=== PATIENT | male | born 1975 | race Caucasian/White ===

== ENCOUNTER 2017-08-20 10:01 | Inpatient (IN) | payer OTHER ==
[~2017-08-20] VITALS: Ht 185.4 cm; Wt 154.7 kg
[2017-08-20 10:05] VITALS: BP 128/71
[2017-08-20] MEDS ORDERED: PRINIVIL20 MG PO (10:08)
[2017-08-20] MEDS ORDERED: ZYRTEC10 M5 PO (10:09)
[2017-08-20 10:28] LABS: ABSOLUTE EOSINOPHILS 0.2 thou/uL (0.0-0.7); ABSOLUTE LYMPHOCYTES 1.3 thou/uL (0.8-5.3); ABSOLUTE MONOCYTES 0.7 thou/uL (0.0-1.2); ABSOLUTE NEUTROPHILS 3.4 thou/uL (1.6-8.1); BASOPHILS 0.8 %; EOSINOPHILS 2.7 %; HEMATOCRIT 38.1 % (42.0-52.0); HEMOGLOBIN 12.9 gm/dL (14.0-18.0); LYMPHOCYTES 23.1 %; MCH 31.1 pg (26.0-34.0); MCHC 33.8 g/dL (28.0-37.0); MCV 92.2 fL (80.0-100.0); MONOCYTES 11.9 %; MPV 8.8 fl. (7.2-11.1); NUCLEATED RBCS 0 /100WBC; PLATELET COUNT* 171 thou/uL (150-400); POLYS 61.5 %; RBC 4.14 mil/uL (4.50-6.00); RDW-CV 13.3 % (10.5-14.5); WBC 5.6 thou/uL (4.0-11.0)
[2017-08-20 10:29] LABS: URINE BILIRUBIN NEGATIVE (Negative); URINE BLOOD 3+ (Negative); URINE CLARITY CLEAR; URINE COLOR YELLOW; URINE GLUCOSE-RANDOM NEGATIVE (Negative); URINE KETONES NEGATIVE (Negative); URINE LEUKOCYTES-REFLEX NEGATIVE (Negative); URINE NITRITE-REFLEX NEGATIVE (Negative); URINE PROTEIN 2+ (Negative); URINE SPECIFIC GRAVITY >= 1.030 (1.005-1.030); URINE UROBILINOGEN 0.2 E.U./dl (0.2-1.0)
[2017-08-20 10:39] LABS: SQUAMOUS NONE SEEN /LPF (0-3)
[2017-08-20 10:40] LABS: COARSE GRANULAR CASTS 0-3 Few /LPF (None Seen); FINE GRANULAR CASTS 4-10 Moderate /LPF (None Seen); HYALINE CASTS 4-10 Moderate /LPF (None Seen); MUCUS 0-3 Light strn/LPF (None Seen); URINE WBC-REFLEX 0-5 Rare /HPF (0-5)
[2017-08-20 10:40] LABS: APTT 27.3 Seconds (25.0-31.3); INR 1.2; PROTIME 11.8 Seconds (9.20-11.50)
[2017-08-20 10:41] LABS: AMORPHOUS URATES Few /LPF (None Seen)
[2017-08-20 10:43] LABS: ANION GAP 10 mmol/L (7-16); BUN 22 mg/dL (7-18); CALCIUM 8.2 mg/dL (8.5-10.1); CHLORIDE 104 mmol/L (98-107); CO2 25 mmol/L (21-32); CREATININE 2.1 mg/dL (0.6-1.3); GLUCOSE 127 mg/dL (70-99); POTASSIUM 4.1 mmol/L (3.5-5.1); SODIUM 139 mmol/L (136-145)
[2017-08-20 10:45] LABS: AMP/METHAMP Negative (Negative); BARBITURATES Negative (Negative); BENZODIAZEPINES Negative (Negative); COCAINE Negative (Negative); METHADONE Negative (Negative); OPIATES Negative (Negative); PCP Negative (Negative); THC Negative (Negative)
[2017-08-20 10:48] LABS: ALBUMIN 3.3 g/dL (3.4-5.0); ALKALINE PHOSPHATASE 79 U/L (46-116); MAGNESIUM 1.9 mg/dL (1.8-2.4); SGOT 23 U/L (15-37); SGPT 23 U/L (30-65); TOTAL BILIRUBIN 0.3 mg/dL (<0.1-1.0); TOTAL PROTEIN 7.2 g/dL (6.4-8.2); TROPONIN-I LEVEL <0.06 ng/mL (<0.06)
[2017-08-20 15:10] VITALS: BP 116/74
[2017-08-20 15:56] VITALS: BP 125/73
--- NOTE | 2017-08-20 16:33 | EKG ---
[place] [address] ELECTROCARDIOGRAM REPORT Name: RENEA ZALDIVAR Room: [address] ADM IN [facility]#: [id number] Admission: 08/20/17 Attend Phys: Dee Saucedo Discharge: Date of : 77 Report #: [id number] THIS REPORT FOR: //name// [facility] ED Test Date: 2017-08-20 Test Time: 10:04:45 Pat Name: RENEA GRIFFITHCE Department: Room: [facility] Gender: M Rn Paralegal: MS : 1975 Requested By: Hilary Soto Order Number: [id number] MD: Uriel Shi Measurements Intervals Dime Box Rate: 73 P: 21 DE: 152 QRS: 24 QRSD: 110 T: 28 QT: 364 QTc: 401 Interpretive Statements Sinus rhythm No previous ECG available for comparison Electronically Signed On 08-20-2017 16:33:30 MAIL SORTER by Uriel Shi [email or web address] <ELECTRONICALLY SIGNED> By: Uriel Shi MD, [facility] 08/20/17 1633 1004 Uriel Shi MD, [facility] /EPI
[2017-08-20 18:20] LABS: INFLUENZA A ANTIGEN None Detected (None Detect)
[2017-08-20 20:15] VITALS: BP 128/53
[2017-08-21] VITALS (8 sets, daily range): BP systolic 127–144; BP diastolic 59–92
--- NOTE | 2017-08-21 16:59 | 2DMMODE ---
[place] [address] 2 D/M-MODE ECHOCARDIOGRAM Name: RENEA ZALDIVAR Room: [address] IN [facility]#: [id number] Admission: 08/20/17 Attend Phys: [place] Amaro Discharge: Date of : 77 Date of Service: 08/21/17 1658 Report #: [id number] THIS REPORT FOR: //name// APPROVED REPORT Study performed: 08/21/2017 10:03:55 EXAM: Comprehensive 2D, Doppler, and color-flow Echocardiogram Patient Location: In-Patient Room #: 200 Status: routine BSA: 2.33 HR: 80 bpm BP: 133/76 mmHg Rhythm: NSR Other Information Study Quality: Fair Indications Syncope Seizures 2D Dimensions LVEF(%): 68.76 (>50%) IVSd: 9.29 (7-11mm) LVOT Diam: 23.52 (18-24mm) LVDd: 44.35 mm PWd: 8.55 (7-11mm) Ascending Ao: 27.62 (22-36mm) LVDs: 27.36 (25-40mm) Aortic Root: 33.33 mm Meza's LVEF: 68.76 % Volumes Left Atrial Volume (Systole) LA ESV Index: 20.20 mL/m2 Aortic Valve AoV Peak Refugio.: 1.18 m/s AO Peak Gr.: 5.56 mmHg LVOT Max P.60 mmHg AO Mean Gr.: 2.92 mmHg LVOT Mean P.30 mmHg LVOT Max V: 1.18 m/s AO V2 VTI: 19.88 cm LVOT Mean V: 0.68 m/s CAIN (VTI): 4.48 cm2 LVOT V1 VTI: 20.49 [place] [address] 2 D/M-MODE ECHOCARDIOGRAM Name: RENEA ZALDIVAR Room: [address] IN [facility]#: [id number] Admission: 08/20/17 Attend Phys: [place] Amaro Discharge: Date of : 77 Date of Service: 08/21/17 1658 Report #: [id number] E/A Ratio: 1.09 MV Decel. Time: 269.35 ms MV E Max Refugio.: 0.66 m/s MV PHT: 78.11 ms MVA (PHT): 2.82 cm2 TDI E/Lateral E': 6.00 E/Medial E': 5.08 Medial E' Refugio.: 0.13 m/s Lateral E' Refugio.: 0.11 m/s Pulmonary Valve PV Peak Refugio.: 1.47 m/s PV Peak Gr.: 8.60 mmHg Left Ventricle The left ventricle is normal size. There is normal LV segmental wall motion. There is normal left ventricular wall thickness. Left ventricular systolic function is normal. The left ventricular ejection fraction is within the normal range. LVEF is 60-65%. The left ventricular diastolic function is normal. Right Ventricle The right ventricle is normal size. The right ventricular systolic function is normal. Atria The left atrium size is normal. The right atrium size is normal. Aortic Valve The aortic valve is normal in structure. No aortic regurgitation is present. There is no aortic valvular stenosis. Mitral Valve The mitral valve is normal in structure. Trace mitral regurgitation. No evidence of mitral valve stenosis. Tricuspid Valve The tricuspid valve is normal in structure. Unable to assess PA pressure. Trace tricuspid regurgitation. Pulmonic Valve The pulmonary valve is normal in structure. There is no pulmonic valvular regurgitation[place] [address] 2 D/M-MODE ECHOCARDIOGRAM Name: RENEA ZALDIVAR Mani Room: [address]#: [id number] Admission: 08/20/17 Attend Phys: [place] Amaro Discharge: Date of : 77 Date of Service: 08/21/17 1658 Report #: [id number] The aortic root is normal in size. IVC is not well visualized. Pericardium There is no pericardial effusion. <Conclusion> Left ventricular systolic function is normal. The left ventricular ejection fraction is within the normal range. <ELECTRONICALLY SIGNED> By: Phill Pichardo MD, [facility] 08/21/171657 57 57 Phill Pichardo MD, FACC /INF
[2017-08-22] VITALS: BP 123/40
[2017-08-22 04:19] VITALS: BP 124/58
[2017-08-22 07:55] VITALS: BP 141/80
[2017-08-22 08:00] VITALS: BP 140/79
[2017-08-22 11:26] VITALS: BP 140/79
[2017-08-22] MEDS ORDERED: OSELB75 PO (11:34)
[2017-08-22 11:36] VITALS: BP 132/72
[2017-08-22] MEDS ORDERED: TYLENOL325 MG PO (11:44)
[2017-08-22] MEDS ORDERED: MUCINEX DM ER1 EACH PO (11:46)
--- NOTE | 2017-08-23 10:39 | EEG ---
[address] [address] EEG STUDY REPORT Name: ZALDIVARRENEA Room: [address]#: [id number] Admission: 08/20/17 Attend Phys: Dee Saucedo Discharge: 08/22/17 Date of : 77 Report #: [id number] THIS REPORT FOR: //name// CC: Hailey Amaro DATE OF SERVICE: 08/21/2017 This patient is being evaluated for syncope with a question of seizure. Background activity in this patient's EEG is about 11 Hz and 40 microvolts. This patient become drowsy that is associated with bilateral slowing and vertex sharp waves on both sides. Photic stimulation is unremarkable. Throughout the record, no active epileptiform activity was noticed. IMPRESSION: This patient's EEG is within normal limit. Thank you very much for this referral. <ELECTRONICALLY SIGNED> By: Isaac Cline MD 08/23/17 1039 1528 [id number] Cline MD /nt
--- NOTE | 2017-08-23 10:39 | CON ---
[address] [address] CONSULTATION Name: RENEA ZALDIVAR Room: [address] IN ..#: [id number] Admission: 08/20/17 Attend Phys: Dee Saucedo Discharge: 08/22/17 Date of : 77 Report #: [id number] THIS REPORT FOR: //name// CC: Hailey Amaro DATE OF SERVICE: 08/20/2017 HISTORY OF PRESENT ILLNESS: This is a 42-year-old male patient who was evaluated by me for any neurological etiology for the patient's syncope. The patient indicates that whenever he gets sinus infection, he feels dizzy. He was having some sinus symptoms and was feeling dizzy. He apparently passed out. He hit back portion of the head and at that time, he had a tremor-like activity. REVIEW OF SYSTEMS: Indicate that he has diarrhea. He had some fevers. He had some sinus problems. He had these problems also in the past. I carried out his 14-point review of system and he does have some hypertension, but his rest of the 14-point review of system looks mostly unremarkable. PAST MEDICAL HISTORY: Positive for hypertension. His creatinine is high here and he indicates that he had some kidney issues even prior to this. FAMILY HISTORY: Unremarkable. SOCIAL HISTORY: He does drink alcohol, but he says he does not drink alcohol everyday and he does not drink in heavy amounts. PHYSICAL EXAMINATION: Indicates he is alert, responsive, able to follow simple and complex command. Cranial nerve examination 2-12 is unremarkable. He has a symmetrical strength, sensation, reflexes and tones in all 4 extremities. I did not make him walk. There is no carotid bruit. He did not complain of much pain in the neck area. He is a well-developed individual who does not have any dysmorphic features of eyes, ears and face. His cardiac examination does not show any atrial fibrillation. His heart sounds are unremarkable. No respiratory difficulty or rhonchi was noticed. He did have a CT of the head and C-spine which does not show any abnormality. IMPRESSION: It is unlikely that this episode was of any neurological etiology. It is going to be some systemic etiologies including vasovagal spell or sinusitis. Neurological workup is desirable. If he did have a seizure that may have been secondary to his systemic condition including vasovagal spell, but it is not even certain that he had a seizure. RECOMMENDATIONS: 1. [place] [address] CONSULTATION Name: RENEA ZALDIVAR Room: [address]#: [id number] Admission: 08/20/17 Attend Phys: Dee Saucedo Discharge: 08/22/17 Date of : 77 Report #: [id number] 2. MRA of the head and neck. 3. EEG. 4. I will suggest an ENT and a cardiac consult in this patient because likely etiology is systemic and I think he needs workup in that regard. If we find any etiology in this, then we will treat accordingly. Otherwise, management will be deferred to other consultants including ENT, cardiac and yourself. Thank you very much for this referral. <ELECTRONICALLY SIGNED> By: Isaac Cline MD 08/23/17 1039 1508 [id number] Cline MD /nt
--- NOTE | 2017-08-24 13:28 | CON ---
[address] [address] CONSULTATION Name: RENEA ZALDIVAR Room: [address] IN [facility]#: [id number] Admission: 08/20/17 Attend Phys: Dee Saucedo Discharge: 08/22/17 Date of : 77 Report #: [id number] THIS REPORT FOR: //name// CC: Hailey Amaro DATE OF SERVICE: 08/21/2017 Cardiology Consultation HISTORY OF PRESENT ILLNESS: The patient is a 42-year-old white male who I was asked to see in the hospital today after he had a syncopal spell. The patient has no previous history of heart disease. He does have a history of glomerulonephritis and is followed by a tank officer. He has had a previous renal biopsy. However, he works out on a daily basis. He denies history of chest pain, shortness of breath, palpitations. He has had no previous syncope. For the past several days, the patient has not felt well. He has had a headache, cough, sore throat. He felt warm as if he had a fever. He notes some loose stools. Now, his 2-year-old daughter has had a fever. Yesterday, he was in the kitchen, felt warm, woke up on the ground. Paramedics were called. He was brought here to [place] by ambulance. I was asked to see him for further evaluation and treatment. He denied any recent vomiting or bleeding. He denied any heart racing. He has had no previous syncope. Denied history of a heart murmur. PAST MEDICAL HISTORY: Significant for no surgical procedures. He has no history of diabetes. He does have a history of hypertension. MEDICATIONS: At home consists of Zyrtec and lisinopril. ALLERGIES: He has an intolerance TO AMOXICILLIN. FAMILY HISTORY: His father had balloon angioplasty. SOCIAL HISTORY: He is . He and his live in [place]. He works in a factory, night shifts. Quit smoking years ago, rarely drinks alcohol. No illicit drug use. REVIEW OF SYSTEMS: He has had no history of stroke, asthma, peptic ulcer disease, liver disease, cancer, psychiatric illness, chronic skin condition. PHYSICAL EXAMINATION: GENERAL: Revealed a middle-aged male. He appeared in no distress. VITAL SIGNS: He had a blood pressure of 130/70, pulse is 90, he is afebrile. HEENT: He was anicteric. Conjunctivae pink. Muc[place] [address] CONSULTATION Name: RENEA ZALDIVAR Room: [address]#: [id number] Admission: 08/20/17 Attend Phys: Dee Saucedo Discharge: 08/22/17 Date of : 77 Report #: [id number] NECK: Veins nondistended. No carotid bruits. Neck supple. CHEST: Clear to auscultation. CARDIAC: Regular rate and rhythm, no murmur. ABDOMEN: Soft, nontender. EXTREMITIES: Had no edema. Posterior tibial pulse 2+ bilaterally. SKIN: Warm, dry. NEUROLOGIC: Nonfocal. LYMPH: No adenopathy. MUSCULOSKELETAL: No joint effusion. RADIOLOGICAL DATA: His ECG on admission yesterday showed a sinus rhythm. There was normal intervals and axis, no ST or T-wave change. His workup so far, he had multiple x-rays including a chest x-ray that showed normal heart size, clear lung saldaña. CT scan of the head without contrast unremarkable. Carotid Doppler study showed no significant stenosis. MRI of the brain with contrast showed no acute abnormality. LABORATORY DATA: Sodium 139, BUN 22, creatinine 2.1, glucose 127. Liver function studies were normal. Troponin 0.06. TSH 0.46. White blood cell count was 5.6, hemoglobin 12.9. IMPRESSION AND RECOMMENDATIONS: 1. Syncopal spell. Suspect vasovagal from recent viral illness. Possible dehydration. No arrhythmia. No evidence of structural heart disease. Recommend no further cardiac evaluation. I would avoid dehydration. 2. Recent upper expiratory illness. 3. History of glomerulonephritis with chronic kidney disease. The patient is followed by tank officer. 4. Hypertension: The patient is on an TAMIKA inhibitor. <ELECTRONICALLY SIGNED> By: Phill Pichardo MD, [facility] 08/24/17 1328 0955 [id number] Pichardo MD, [facility] /nt
== END 2017-08-22 13:05 | disposition home or self-care (01) | DRG 193 ==
LOC: M.ERS 10:01 → M.2W 13:05 → M.TBA-ER 13:05 → M.2W 15:23
PROVIDERS: Physician Assistant; ADMIT Internal Medicine
DX: J10.1 Influenza due to other identified influenza virus with other respiratory manifestations (principal); N17.0 Acute kidney failure with tubular necrosis; I12.9 Hypertensive chronic kidney disease with stage 1 through stage 4 chronic kidney disease, or unspecified chronic kidney disease; N18.9 Chronic kidney disease, unspecified; E86.1 Hypovolemia; J11.1 Influenza due to unidentified influenza virus with other respiratory manifestations; Z82.49 Family history of ischemic heart disease and other diseases of the circulatory system; Z88.1 Allergy status to other antibiotic agents; Z87.891 Personal history of nicotine dependence; Z23 Encounter for immunization